=== PATIENT | female | born 1950 | race Caucasian/White ===

== ENCOUNTER 2017-07-26 19:11 | Emergency (ER) | payer MEDICARE ==
[~2017-07-26] VITALS: Ht 144.8 cm; Wt 49.3 kg
[~2017-07-26 19:11] MED LIST: ALPR1 PO; GABA300C3 PO; ROPI1TAB72 PO; SULF1TAB47 PO; TOPI100T PO; VALP250C PO
[2017-07-26 19:36] VITALS: BP 112/71; PULSE 95; RESP 18; TEMP 98.3; O2SAT 97
[2017-07-26] MEDS ORDERED: SODIUM CHLOR 0.9% 1000 ML INJ 1,000 ML IV ONE (19:49)
--- NOTE | 2017-07-26 19:54 | PD ---
HPI Chief Complaint: Headache Time Seen by Provider: 19:40 Travel History International Travel<30 days: No Contact w/Intl Traveler<30days: No Traveled to known affect area: No History of Present Illness HPI The patient is a 66-year-old female that complains of migraine headache for over a week. The headache is bilateral, gradual onset and associated with nausea without vomiting. She does notice slight blurred vision. In the past Stadol is helped these headaches. She does get frequent headaches. She had an MRI about a month and a half ago which was fairly unremarkable. She is followed by Dr. Garcia for her headaches. She states her headache is a 10/ 10. It is an aching feeling. She denies any focal weakness or sensory loss. PFSH Past Medical History Arthritis: No Asthma: No Autoimmune Disease: No Blood Disorders: Yes (PERNICIOUS ANEMIA) Anxiety: Yes Depression: Yes Heart Rhythm Problems: Yes Cancer: No Cardiac Catheterization: Yes Cardiovascular Problems: No High Cholesterol: No Chemotherapy: No Chest Pain: No Congestive Heart Failure: No COPD: No Cerebrovascular Accident: No Diabetes: No Diminished Hearing: No Endocrine: Yes GERD: No Glaucoma: No Genitourinary: No Headaches: Yes Hepatitis: No Hiatal Hernia: No Hypertension: Yes Immune Disorder: No Kidney Stones: No Musculoskeletal: Yes (RIGHT KNEE REPLACEMENT) Neurologic: Yes Reproductive: No Respiratory: Yes Migraines: Yes Myocardial Infarction: No Radiation Therapy: No Renal Failure: No Seizures: Yes (SINCE 2005) Sickle Cell Disease: No Sleep Apnea: No Thyroid Disease: Yes Ulcer: No Past Surgical History Abdominal Surgery: Yes ([id number], GALLBLADDER REMOVAL 1998) AICD: No Appendectomy: Yes Cardiac Surgery: Yes (HEART CATH IN 2004,) Cholecystectomy: Yes Ear Surgery: No Endocrine Surgery: No Eye Surgery: No Genitourinary Surgery: No Gynecologic Surgery: Yes (1998 HYSTERECTOMY) Hysterectomy: Yes Joint Replacement: No Oral Surgery: No Pacemaker: No Thoracic Surgery: Yes ( BILAT BREAST IMPLANTS 2000) Tonsillectomy: Yes Other Surgery: Yes (BREAST AUGMENTATION) Social History Alcohol Use: No Tobacco Use: No Substance Use: No Allergies-Medications (Allergen,Severity, Reaction): Coded Allergies: No Known Allergies (Unverified , 07/26/17) Reported Meds & Prescriptions Reported Meds & Active Scripts Active Reported Gabapentin 300 Mg Cap 300 Mg PO TID Percocet (Oxycodone-Acetaminophen) 10-325 mg Tab 1 Tab PO Q4H PRN Review of Systems Except as stated in HPI: all other systems reviewed are Neg Physical Exam Narrative GENERAL: The patient is alert, oriented 3 in moderate apparent distress with her headache. Her vital signs are normal. SKIN: Focused skin assessment warm/dry. HEAD: Atraumatic. Normocephalic. EYES: Pupils equal and round. No scleral icterus. No injection or drainage. ENT: No nasal bleeding or discharge. Mucous membranes pink and moist. NECK: Trachea midline. No JVD. There is no meningismus and the patient can flex the neck so that the chin touches the chest without a problem. CARDIOVASCULAR: Regular rate and rhythm. No murmur appreciated. RESPIRATORY: No accessory muscle use. Clear to auscultation. Breath sounds equal bilaterally. GASTROINTESTINAL: Abdomen soft, non-tender, nondistended. Hepatic and splenic margins not palpable. No guarding or rebound is present. MUSCULOSKELETAL: No obvious deformities. No clubbing. No cyanosis. No edema. NEUROLOGICAL: Awake and alert. No obvious cranial nerve deficits. Motor grossly within normal limits. Normal speech. PSYCHIATRIC: Appropriate mood and affect; insight and judgment normal. Data Data Last Documented VS Vital Signs Date Time Temp Pulse Resp B/P (MAP) Pulse Ox O2 Delivery O2 Flow Rate FiO2 07/26/17 21:34 18 07/26/17 21:10 91 147/78 (101) 99 Nasal Cannula 2.00 07/26/17 19:36 98.3 Orders Orders Complete Blood Count With Diff (07/26/17 19:49) Basic Metabolic Panel (Bmp) (07/26/17 19:49) Ecg Monitoring (07/26/17 19:49) Iv Access Insert/Monitor (07/26/17 19:49) Oximetry (07/26/17 19:49) Sodium Chloride 0.9% Flush (Ns Flush) (07/26/17 20:00) Ketorolac Inj (Toradol Inj) (07/26/17 20:00) Prochlorperazine Inj (Compazine Inj) (07/26/17 20:00) Sodium Chlor 0.9% 1000 Ml Inj (Ns 1000 M (07/26/17 19:49) Butorphanol Inj (Stadol Inj) (07/26/17 20:00) Potassium Chloride (Kcl) (07/26/17 21:00) Lorazepam Inj (Ativan Inj) (07/26/17 21:15) Lorazepam Inj (Ativan Inj) (07/26/17 21:07) Gabapentin (Neurontin) (07/26/17 21:30) Labs Laboratory Tests Test 07/26/17 20:00 White Blood Count 6.3 TH/MM3 Red Blood Count 4.32 MIL/MM3 Hemoglobin 12.6 GM/DL Hematocrit 37.8 % Mean Corpuscular Volume 87.4 FL Mean Corpuscular Hemoglobin 29.1 PG Mean Corpuscular Hemoglobin Concent 33.3 % Red Cell Distribution Width 13.7 % Platelet Count 184 TH/MM3 Mean Platelet Volume 8.4 FL Neutrophils (%) (Auto) 46.9 % Lymphocytes (%) (Auto) 40.0 % Monocytes (%) (Auto) 8.6 % Eosinophils (%) (Auto) 3.7 % Basophils (%) (Auto) 0.8 % Neutrophils # (Auto) 3.0 TH/MM3 Lymphocytes # (Auto) 2.5 TH/MM3 Monocytes # (Auto) 0.5 TH/MM3 Eosinophils # (Auto) 0.2 TH/MM3 Basophils # (Auto) 0.1 TH/MM3 CBC Comment DIFF FINAL Differential Comment Blood Urea Nitrogen 19 MG/DL Creatinine 1.10 MG/DL Random Glucose 85 MG/DL Calcium Level 8.4 MG/DL Sodium Level 139 MEQ/L Potassium Level 3.0 MEQ/L Chloride Level 106 MEQ/L Carbon Dioxide Level 24.8 MEQ/L Anion Gap 8 MEQ/L Estimat Glomerular Filtration Rate 50 ML/MIN MDM Medical Decision Making Medical Screen Exam Complete: Yes Emergency Medical Condition: Yes Medical Record Reviewed: Yes Interpretation(s) The CBC is normal. The basic metabolic profile shows a BUN of 19, creatinine 1.1, GFR 50 and calcium 8.4 and potassium 3.0 but is otherwise normal. Differential Diagnosis Migraine headache, tension headache, cluster headache, subarachnoid hemorrhage- highly unlikely, tension/migraine combination headache Narrative Course The patient likely has a combination of migraine and tension headache. It is now 952 and she is sleeping. The patient got muscle spasms after the Stadol was given. The muscle spasms may be also have been caused by the low potassium. Nevertheless, the spasms resolved with Ativan and gabapentin. The patient will get a prescription for Fioricet as well as potassium supplement. She will also get Compazine for nausea. The patient has gabapentin at home. Diagnosis Primary Impression: Migraine headache Additional Impressions: Tension headache Hypokalemia Additional Instructions: The prochlorperazine is for nausea. The Fioricet is 4 the headache and it is 1- 2 every 6 hours as needed. The potassium pill is 1 daily for 1 month. Follow- up next week with your primary care physician. The headache appears to be a combination of tension and migraine headache. Med/Other Pt SpecificInfo: Prescription(s) given Scripts Prochlorperazine Maleate (Prochlorperazine Maleate) 10 Mg Tab 10 MG PO Q6H Y for NAUSEA OR VOMITING, #20 TAB 0 Refills Prov: Rudy Keenan MD 07/26/17 [id number]-Ttnnwktm (Fioricet) 50-300-40 Mg Cap 1-2 CAP PO Q6H Y for HEADACHE, #30 CAP 0 Refills Prov: Rudy Keenan MD 07/26/17 Potassium Chloride ER (K-Tab) 20 Meq Tab 20 MEQ PO DAILY for Electrolyte Replacement, #30 TAB 0 Refills Prov: Rudy Keenan MD 07/26/17 Disposition: 01 DISCHARGE HOME Condition: Stable Rudy Keenan MD Jul 26, 2017 19:54
[2017-07-26] MEDS ORDERED: PERC10TA27 PO (19:58)
[2017-07-26] MEDS ORDERED: GABA300C5 PO (19:59)
[2017-07-26] MEDS ORDERED: SODIUM CHLORIDE 0.9% FLUSH 10 ML FLUSH IVF PRN (20:00)
[2017-07-26] MEDS ORDERED: BUTORPHANOL TARTRATE INJ 2 MG/ML VIAL IV PUSH ONE (20:00)
[2017-07-26] MEDS ORDERED: KETOROLAC TROMETHAMINE 30 MG/ML (IVP) VIAL IVP ONE (20:00)
[2017-07-26] MEDS ORDERED: PROCHLORPERAZINE INJ 10 MG/2 ML VIAL IVP ONE (20:00)
[2017-07-26 20:30] VITALS: O2SAT 98
[2017-07-26 20:31] LABS: CALCIUM 8.4 MG/DL (8.5-10.1)
[2017-07-26 20:32] LABS: BICARBONATE 24.8 MEQ/L (21.0-32.0)
[2017-07-26 20:35] LABS: CREATININE 1.1 MG/DL (0.50-1.00)
[2017-07-26 20:40] LABS: BASOPHIL # 0.1 TH/MM3 (0-0.2); BASOPHIL % 0.8 % (0.0-2.0); EOSINOPHIL # 0.2 TH/MM3 (0-0.4); EOSINOPHIL % 3.7 % (0.0-4.0); HEMATOCRIT 37.8 % (35.0-46.0); HEMOGLOBIN 12.6 GM/DL (11.6-15.3); LYMPHOCYTE # 2.5 TH/MM3 (1.0-4.8); MEAN CELL VOLUME 87.4 FL (80.0-100.0); MEAN CORPUSCULAR HEMOGLOBIN 29.1 PG (27.0-34.0); MEAN CORPUSCULAR HGB CONC 33.3 % (32.0-36.0); MEAN PLATELET VOLUME 8.4 FL (7.0-11.0); MONO % 8.6 % (0.0-8.0); MONOCYTE # 0.5 TH/MM3 (0-0.9); NEUT % 46.9 % (16.0-70.0); PLATELET COUNT 184 TH/MM3 (150-450); RED BLOOD COUNT 4.32 MIL/MM3 (4.00-5.30); RED CELL DISTRIBUTION WIDTH 13.7 % (11.6-17.2); WHITE BLOOD COUNT 6.3 TH/MM3 (4.0-11.0)
[2017-07-26] MEDS ORDERED: POTASSIUM CHLORIDE 20 MEQ CONTROLLED RELEASE TAB PO ONE ×2 (21:00→21:15)
[2017-07-26] MEDS ORDERED: LORazepam 2 MG/ML VIAL ONE (21:07)
[2017-07-26 21:10] VITALS: BP 147/78; PULSE 91; RESP 20; O2SAT 99
[2017-07-26] MEDS ORDERED: LORazepam 2 MG/ML VIAL IV PUSH ONE (21:15)
[2017-07-26] MEDS ORDERED: GABAPENTIN 300 MG CAP PO ONE (21:30)
[2017-07-26 21:57] VITALS: BP 140/58; PULSE 90; RESP 18; O2SAT 98
[2017-07-26] MEDS ORDERED: PROC10TA PO (21:58)
[2017-07-26] MEDS ORDERED: BUTA1CAP PO (21:58)
[2017-07-26] MEDS ORDERED: POTA1TAB4 PO (21:58)
== END 2017-07-26 22:22 | disposition home or self-care (01) ==
LOC: PHED 19:11
DX: G43.909 Migraine, unspecified, not intractable, without status migrainosus (principal); G44.209 Tension-type headache, unspecified, not intractable; E87.6 Hypokalemia; R11.0 Nausea; F41.8 Other specified anxiety disorders; I10 Essential (primary) hypertension; R56.9 Unspecified convulsions
CPT/HCPCS: 80048; 85025; 96361; 96374; 96375; 99284; J0595; J0780; J1885; J2060; J7030